=== PATIENT | male | born 1980 ===

== ENCOUNTER 2024-06-12 07:32 | Day surgery (SDC) | payer OTHER ==
[2024-06-12] MEDS ORDERED: METRONIDAZOLE/SODIUM CHLORIDE 500 MG/100 ML PIGGYBACK IV ONE (09:14)
[2024-06-12] MEDS ORDERED: CEFTRIAXONE SODIUM 2,000 MG VIAL ONE (09:14)
[2024-06-12] MEDS ORDERED: DIBUCAINE 30 GM TUBE ONE (09:34)
[2024-06-12] MEDS ORDERED: POVIDONE-IODINE 118 ML BOTT TOP ONE (09:35)
[2024-06-12] MEDS ORDERED: HEMOSTATIC MATRIX 1 KIT KIT TOP ONE (09:35)
[2024-06-12] MEDS ORDERED: DIPHENHYDRAMINE HCL 50 MG/ML VIAL 1ML ONE (10:14)
[2024-06-12] MEDS ORDERED: OXYC1TAB9 PO (14:08)
[2024-06-12] MEDS ORDERED: TAMSULOSIN HCL 0.4 MG CAP PO ONE ×2 (14:15→15:36)
== END 2024-06-12 16:05 | disposition home or self-care (01) ==
LOC: CIR.AMB 07:32
PROVIDERS: ATTEND Surgery
DX: D12.9 Benign neoplasm of anus and anal canal (principal); A63.0 Anogenital (venereal) warts; K62.0 Anal polyp; K62.89 Other specified diseases of anus and rectum; Z88.0 Allergy status to penicillin